=== PATIENT | male | born 1980 ===

== ENCOUNTER 2017-03-14 00:42 | Observation (INO) | payer OTHER ==
[2017-03-14 01:05] VITALS: O2SAT 100
--- NOTE | 2017-03-14 01:25 | ED PDOC ---
HPI: Psych/Substance Abuse Time Seen by Provider: 03/14/17 01:13 Chief Complaint (Nursing): Psychiatric Evaluation Chief Complaint (Provider): hearing vocies History Per: Patient History/Exam Limitations: no limitations Onset/Duration Of Symptoms: Unknown Current Symptoms Are (Timing): Still Present Suicide/Self Injury Attempted (Context): None Modifying Factor(s): None Severity: Mild Associated Symptoms: Anxiety Involuntary Hold By: None Additional Complaint(s): Patient is a 36 year old male, who has a history of schizophrenia and anxiety, presents to the ED complaining of hearing voices. Voices sound like someone who is high on PCP. Denies persecutory hallucinations. Denies suicidal ideation and homicidal ideation. Patient is supposed to be taking Xanax. PMD: none Past Medical History Reviewed: Historical Data, Nursing Documentation, Vital Signs Vital Signs: Last Vital Signs Temp 98.1 F 03/14/17 00:51 Pulse 81 03/14/17 00:51 Resp 16 03/14/17 00:51 BP 150/94 H 03/14/17 00:51 Pulse Ox 100 03/14/17 00:51 - Medical History PMH: Anxiety, Schizophrenia - Family History Family History: States: No Known Family Hx - Allergies Allergies/Adverse Reactions: Allergies Allergy/AdvReac Type Severity Reaction Status Date / Time No Known Allergies Allergy Verified 03/14/17 01:05 Review of Systems ROS Statement: Except As Marked, All Systems Reviewed And Found Negative Constitutional: Positive for: Other (hearing voices). Negative for: Fever Cardiovascular: Negative for: Chest Pain Psych: Positive for: Anxiety. Negative for: Suicidal ideation Physical Exam - Reviewed Nursing Documentation Reviewed: Yes Vital Signs Reviewed: Yes - Physical Exam Appears: Positive for: Well, Non-toxic, No Acute Distress Head Exam: Positive for: ATRAUMATIC, NORMAL INSPECTION, NORMOCEPHALIC Skin: Positive for: Normal Color, Warm, DRY Neck: Positive for: Normal, Painless ROM Cardiovascular/Chest: Positive for: Regular Rate, Rhythm. Negative for: Gallop , Murmur Respiratory: Positive for: Normal Breath Sounds. Negative for: Accessory Muscle Use, Rhonchi, Respiratory Distress Extremity: Positive for: Normal ROM Neurologic/Psych: Positive for: Alert, Oriented, Mood/Affect (anxious) - Laboratory Results Result Diagrams: 03/14/17 01:15 03/14/17 01:15 - ECG O2 Sat by Pulse Oximetry: 100 Medical Decision Making Medical Decision Making: Time: 1:15 Impression: Schizophrenia v Anxiety Plan: crisis evaluation Acetaminophen Alcohol Serum BMP Drug Screen Salicylate CBC UA 4:[address] Aguila. patient will follow up with his psychiatrist today. Discussed results and plan with patient who expresses understanding. Counseling was provided regarding the diagnosis and prognosis. All questions answered and there is agreement with the plan to discharge home with instructions. Patient stable for discharge. Return if symptoms persist or worsen. Scribe Attestation: Documented by Eran Jacobs acting as a scribe for Cesar Galvez MD. Scribe Attestation: All medical record entries made by the Scribe were at my direction and personally dictated by me. I have reviewed the chart and agree that the record accurately reflects my personal performance of the history, physical exam, medical decision making, and the department course for this patient. I have also personally directed, reviewed, and agree with the discharge instructions and disposition. ED OBSERVATION Date of observation admission: 03/14/17 Time of observation admission: 02:22 - Observation admission statement Patient is being placed in observation because:: monitor patient until lab results and crisis eval - Goals of Observation Goals of observation are:: monitor until crisis evaluation Disposition - Clinical Impression Clinical Impression: Bipolar I disorder - Patient ED Disposition Is Patient to be Admitted: No Counseled Patient/Family Regarding: Studies Performed, Diagnosis, Need For Followup - Disposition Disposition: Routine/Home Disposition Time: 04:40 Condition: STABLE
[2017-03-14 01:30] LABS: CHLORIDE 103 mmol/L (98-107); POTASSIUM 3.4 MMOL/L (3.6-5.0); SODIUM 142 mmol/l (132-148)
[2017-03-14 01:33] LABS: ALCOHOL SERUM < 10 mg/dl (0-10); BLOOD UREA NITROGEN 21 mg/dl (9-20); CARBON DIOXIDE 22 mmol/L (22-30); GFR AFRICAN-AMERICAN > 60
[2017-03-14 01:34] LABS: CALCIUM 9.3 mg/dL (8.4-10.2); GLUCOSE,RANDOM 137 mg/dL (75-110)
[2017-03-14 01:37] LABS: BASO # 0.1 K/uL (0.0-0.2); BASO % 0.5 % (0.0-2.0); EOS % 0.2 % (0.0-4.0); HEMATOCRIT 48.9 % (35.0-51.0); LYMPH # 1.8 K/uL (1.0-4.3); LYMPH % 15.1 % (20.0-40.0); MEAN CELL VOLUME 90.6 fl (80.0-94.0); MEAN CORPUSCULAR HEMOGLOBIN 30.9 pg (27.0-31.0); MEAN CORPUSCULAR HGB CONC 34.1 g/dL (33.0-37.0); MEAN PLATELET VOLUME 7.8 fl (7.2-11.7); MONO # 0.8 K/uL (0.0-0.8); MONO % 6.8 % (0.0-10.0); NEUT # 9.2 K/uL (1.8-7.0); NEUT % 77.4 % (50.0-75.0); NRBC % 0.1 % (0.0-0.0); RED CELL DISTRIBUTION WIDTH 12.9 % (11.5-14.5); WHITE BLOOD COUNT 11.9 K/uL (4.8-10.8)
[2017-03-14 04:50] VITALS: BP 114/81; PULSE 101; RESP 18; TEMP 98.6
== END 2017-03-14 04:56 | disposition home or self-care (01) ==
LOC: H.ER 00:42 → H.EROBSV 02:00
PROVIDERS: ADMIT Emergency Medicine; ATTEND Emergency Medicine
DX: F31.9 Bipolar disorder, unspecified (principal); F20.9 Schizophrenia, unspecified; F41.9 Anxiety disorder, unspecified
CPT/HCPCS: 80048; 85025; 99282; G0378; G0480